=== PATIENT | female | born 1985 | race Caucasian/White ===

== ENCOUNTER 2017-08-10 10:17 | Emergency (ER) | payer OTHER ==
[~2017-08-10] VITALS: Ht 177.8 cm; Wt 93.2 kg
[~2017-08-10 10:17] MED LIST: BUDE10.2 INH; DIPH25CA61 PO; PREN1TAB27 PO
[2017-08-10] MEDS ORDERED: SODIUM CHLORIDE 0.9% 1,000 ML IV ONE (13:18)
[2017-08-10] MEDS ORDERED: PROCHLORPERAZINE 5 MG/ML, 2ML ONE (13:27)
[2017-08-10] MEDS ORDERED: KETOROLAC 30 MG/1 ML ONE ×2 (13:27→13:40)
[2017-08-10] MEDS ORDERED: DIPHENHYDRAMINE 50 MG/ML, 1ML ONE ×2 (13:27→13:40)
[2017-08-10] MEDS ORDERED: DIPHENHYDRAMINE 50 MG/ML, 1ML IVPush ONE (13:30)
[2017-08-10] MEDS ORDERED: PROCHLORPERAZINE 5 MG/ML, 2ML IVPush ONE (13:30)
[2017-08-10] MEDS ORDERED: KETOROLAC 30 MG/1 ML IVPush ONE (13:30)
[2017-08-10] MEDS ORDERED: SODIUM CHLORIDE 0.9% 1,000ML IVBOLUS ONE (13:30)
[2017-08-10] MEDS ORDERED: SODIUM CHLORIDE FLUSH 10ML SYR IVF ONE (13:30)
[2017-08-10 14:08] VITALS: BP 127/63
== END 2017-08-10 14:35 | disposition home or self-care (01) ==
LOC: ED 13:00
DX: G43.009 Migraine without aura, not intractable, without status migrainosus (principal)
CPT/HCPCS: 70450; 96361; 96374; 96375; 99285; J0780; J1200; J1885; J7030